=== PATIENT | female | born 1955 | race Asian ===

== ENCOUNTER 2016-12-27 21:53 | Observation (INO) | payer OTHER ==
[~2016-12-27] VITALS: Ht 162.6 cm; Wt 52.5 kg
[~2016-12-27 21:53] MED LIST: ASPI-664 PO; ATOR40TA68 PO; CLOP75TA28 PO; DOCU100C PO; FER325 PO; LISI-313 PO; LORA0.5T PO; METO25TA7 PO; PANT40TA3 PO; RANO500T2 PO
[2016-12-27 21:57] VITALS: Ht 162.6 cm; Wt 52.5 kg
[2016-12-27] MEDS ORDERED: ONDANSETRON 4 MG INJ IV STA (22:32)
[2016-12-27] MEDS ORDERED: morphine 4 MG/ML VIAL IV STA (22:32)
[2016-12-27] MEDS ORDERED: ATOR80TA75 PO (22:47)
[2016-12-27 22:52] LABS: ADD SCAN DIFF NO
[2016-12-27 22:53] LABS: BASOPHIL # 0.1 10^3/ul (0.0-0.1); BASOPHILS % 0.7 % (0.0-2.0); EOSINOPHILS # 0.2 10^3/ul (0.0-0.5); EOSINOPHILS % 2.9 % (0.0-7.0); HEMOGLOBIN 12.7 g/dl (12.0-16.0); LYMPHOCYTES # 2.4 10^3/ul (0.8-2.9); LYMPHOCYTES % 32.6 % (15.0-51.0); MEAN CORPUSCULAR HEMOGLOBIN 30.1 pg (29.0-33.0); MEAN CORPUSCULAR HGB CONC 32.6 g/dl (32.0-37.0); MEAN CORPUSCULAR VOLUME 92.4 fl (82.0-101.0); MEAN PLATELET VOLUME 10.2 fl (7.4-10.4); MONOCYTE # 0.4 10^3/ul (0.3-0.9); MONOCYTES % 5.6 % (0.0-11.0); NEUTROPHIL # 4.3 10^3/ul (1.6-7.5); NEUTROPHILS % 57.9 % (39.0-77.0); PLATELET COUNT 198 10^3/UL (140-415); RED BLOOD COUNT 4.22 10^6/ul (4.20-5.40); RED CELL DISTRIBUTION WIDTH 12.5 % (11.5-14.5); WHITE BLOOD COUNT 7.3 10^3/ul (4.8-10.8)
[2016-12-27] MEDS ORDERED: ENALAPRILAT 1.25 MG INJ IV ONE (23:00)
[2016-12-27] MEDS ORDERED: ASPIRIN 81 MG TAB PO ONE (23:00)
[2016-12-27] MEDS ORDERED: NITROGLYCERIN (SL) 0.4 MG TAB SL ONE (23:00)
[2016-12-27 23:26] LABS: ADD UMIC YES; URINE BILIRUBIN (Dip) NEGATIVE (NEGATIVE); URINE BLOOD (Dip) TRACE (NEGATIVE); URINE COLOR LT. YELLOW (YELLOW); URINE GLUCOSE (Dip) NEGATIVE (NEGATIVE); URINE KETONES (Dip) NEGATIVE (NEGATIVE); URINE LEUKOCYTE ESTERASE (Dip) 1+ (NEGATIVE); URINE NITRITE (Dip) NEGATIVE (NEGATIVE); URINE TOTAL PROTEIN (Dip) NEGATIVE (NEGATIVE); URINE UROBILINOGEN (Dip) 0.2 E.U./dL (0.1-1.0)
--- NOTE | 2016-12-27 23:28 | ERA ---
ER Documentation Chief Complaint Date/Time DATE: 12/27/16 TIME: 23:26 Chief Complaint hypertension, sp CaBG x 3 vessels 7 months ago HPI 61-year-old woman presents with pressure-like substernal chest pain 1 day, nonexertional nonradiating but associated with intermittent shortness of breath. She does have a history of coronary artery disease status post coronary bypass graft 7 months ago. She states she has been using her medications as prescribed, including aspirin. She later stated she has had increased urinary frequency 2-3 days. She denies back pain, no cough, no fevers or chills, no vomiting or diarrhea, no headache or blurry vision. ROS All systems reviewed and are negative except as per history of present illness. Medications Home Meds Active Scripts Metoprolol Succinate* (Toprol XL*) 25 Mg Tab.sr.24h, 25 MG PO DAILY for 30 Days , 3 Refills Prov:AMINATA ANDERSON 08/11/16 Lisinopril* (Lisinopril*) 5 Mg Tablet, 5 MG PO DAILY for 30 Days, TAB 3 Refills Prov:AMINATA ANDERSON 07/25/16 Pantoprazole* (Protonix*) 40 Mg Tablet., 40 MG PO QHS, #30 TAB 3 Refills Prov:AMINATA ANDERSON 07/25/16 Aspirin* (Aspirin* EC) 81 Mg Tablet.dr, 81 MG PO DAILY for 30 Days, 3 Refills Prov:AMINATA ANDERSON 07/25/16 Clopidogrel Bisulfate (Clopidogrel) 75 Mg Tablet, 75 MG PO DAILY for 30 Days, TAB 3 Refills Prov:TOMASZ VILLAR MD 06/17/16 Reported Medications Atorvastatin* (Atorvastatin*) 80 Mg Tablet, 80 MG PO QHS, #30 TAB 12/27/16 Ranolazine* (Ranexa*) 500 Mg Tab.sr.12h, 500 MG PO BID, TAB 07/23/16 Ferrous Sulfate* (Ferrous Sulfate*) 325 Mg Tabec, 325 MG PO BID, TAB 05/22/16 Docusate Sodium* (Stool Softener*) 100 Mg Capsule, 100 MG PO BID, CAP 05/22/16 Discontinued Reported Medications Lorazepam* (Lorazepam*) 0.5 Mg Tablet, 0.5 MG PO HS Y for ANXIETY, TAB 07/23/16 Discontinued Scripts Atorvastatin* (Atorvastatin*) 40 Mg Tablet, 40 MG PO HS for 30 Days, TAB 3 Refills Prov:AMINATA ANDERSON 08/11/16 Allergies Allergies: Coded Allergies: Penicillins (Verified Allergy, Unknown, 08/10/16) metronidazole (Verified Allergy, Unknown, RASH, 08/10/16) PMhx/Soc Hypercholesterolemia, coronary artery disease status post coronary artery bypass graft about 7 months ago, hypertension History of Surgery: Yes (CABG triple bypass 05/08/2016, STENT PLACEMENT 2015) Anesthesia Reaction: No Hx Neurological Disorder: No Hx Respiratory Disorders: Yes (ASTHMA, SOB only when there is pain on the post surgery site) Hx Cardiac Disorders: Yes (chest, HTN, HEART ATTACK) Hx Psychiatric Problems: No Hx Miscellaneous Medical Probl: No Hx Alcohol Use: No Hx Substance Use: No Hx Tobacco Use: No Smoking Status: Never smoker FmHx Family History: diabetes Physical Exam Vitals Vital Signs Date Time Temp Pulse Resp B/P Pulse Ox O2 Delivery O2 Flow Rate FiO2 12/28/16 00:20 97.7 55 15 155/80 100 Room Air 12/27/16 22:43 Nasal Cannula 12/27/16 21:57 98.8 81 20 223/110 98 Physical Exam GENERAL: Well-developed, well-nourished, well-hydrated, in no apparent distress , looks nontoxic in appearance HEENT: Moist mucous membranes, pink conjunctiva, no cervical spine tenderness or step-off deformities, no goiter, no jaundice or icterus, extraocular movements intact without pain. No submandibular induration, and no pharyngeal erythema NEURO: Alert and oriented 3, cranial nerves II through XII intact bilaterally, pupils equal round reactive to light, no focal deficits or facial asymmetry, sensation intact distally Strength 5/5 in upper and lower extremities bilaterally CARDIAC: Regular rate and rhythm, no murmurs rubs or gallops LUNGS: Clear bilaterally no wheezing crackles or stridor ABDOMEN: Soft nontender, no guarding, no rigidity, no rebound, no psoas sign no obturator sign. Normoactive bowel sounds SKIN: Warm and dry to touch, no abrasions, contusions, or hematomas, no lacerations, no ecchymosis, no target lesions, and without ulcers EXTREMITIES: No clubbing cyanosis or edema, calves are bilaterally symmetrical, no Homans sign, no popliteal cord sign. Distal pulses equal and bilateral PSYCH: Normal affect without agitation or irritability Result Diagram: 12/27/16223912/27/162239 Results 24 hrs Laboratory Tests Test 12/27/16 22:40 White Blood Count 7.310^3/ul Red Blood Count 4.2210^6/ul Hemoglobin 12.7g/dl Hematocrit 39.0% Mean Corpuscular Volume 92.4fl Mean Corpuscular Hemoglobin 30.1pg Mean Corpuscular Hemoglobin Concent 32.6g/dl Red Cell Distribution Width 12.5% Platelet Count 71454^3/UL Mean Platelet Volume 10.2fl Neutrophils % 57.9% Lymphocytes % 32.6% Monocytes % 5.6% Eosinophils % 2.9% Basophils % 0.7% Nucleated Red Blood Cells % 0.0/100WBC Neutrophils # 4.310^3/ul Lymphocytes # 2.410^3/ul Monocytes # 0.410^3/ul Eosinophils # 0.210^3/ul Basophils # 0.110^3/ul Nucleated Red Blood Cells # 0.010^3/ul Urine Color LT. YELLOW Urine Clarity CLEAR Urine pH 6.0 Urine Specific Angelica <=1.005 Urine Ketones NEGATIVE Urine Nitrite NEGATIVE Urine Bilirubin NEGATIVE Urine Urobilinogen 0.2 E.U./dL Urine Leukocyte Esterase 1+ Urine Microscopic RBC 2-5/HPF Urine WBC Clumps FEW Urine Microscopic WBC 5-10/HPF Urine Hemoglobin TRACE Urine Glucose NEGATIVE% Urine Total Protein NEGATIVE Sodium Level 139mmol/L Potassium Level 4.2mmol/L Chloride Level 106mmol/L Carbon Dioxide Level 24mmol/L Anion Gap 13 Blood Urea Nitrogen 18mg/dl Creatinine 0.89mg/dl Glucose Level 109mg/dl Calcium Level 10.0mg/dl Total Bilirubin 0.3mg/dl Direct Bilirubin 0.00mg/dl Indirect Bilirubin 0.3mg/dl Aspartate Amino Transf (AST/SGOT) 24IU/L Alanine Aminotransferase (ALT/SGPT) 30IU/L Alkaline Phosphatase 71IU/L Troponin I 0.023ng/ml Total Protein 8.6g/dl Albumin 4.5g/dl Globulin 4.10g/dl Albumin/Globulin Ratio 1.09 Lipase 89U/L Current Medications Medications (Trade) Dose Ordered Sig/Rosario Route PRN Reason Start Time Stop Time Status Last Admin Dose Admin Morphine Sulfate (morphine) 4 mg ONCE STAT IV 12/27/16 22:32 12/27/16 22:33 DC 12/27/16 22:48 Ondansetron HCl (Zofran Inj) 4 mg ONCE STAT IV 12/27/16 22:32 12/27/16 22:33 DC 12/27/16 22:48 Aspirin (Aspirin) 162 mg ONCE ONCE PO 12/27/16 23:00 12/27/16 23:01 DC 12/27/16 22:47 Nitroglycerin (Nitroglycerin (Sl Tab) 0.4 Mg) 1 tab ONCE ONCE SL 12/27/16 23:00 12/27/16 23:01 DC 12/27/16 22:47 Enalaprilat (Vasotec Iv) 1.25 mg ONCE ONCE IV 12/27/16 23:00 12/27/16 23:01 DC 12/27/16 22:47 Cephalexin (Keflex) 500 mg ONCE ONCE PO 12/28/16 00:00 12/28/16 00:01 DC 12/28/16 00:50 Ondansetron HCl 4 mg 4 mg ONCE ONCE IV 12/28/16 00:23 12/28/16 00:24 DC 12/28/16 00:24 Sodium Chloride (NS) 1,000 ml @ 80 mls/hr [id number] IV 12/28/16 00:31 12/28/16 13:00 Ondansetron HCl (Zofran Inj) 4 mg ER BRIDGE PRN IV NAUSEA AND/OR VOMITING 12/28/16 01:00 12/29/16 00:59 Acetaminophen (Tylenol Tab) 650 mg ER BRIDGE PRN PO MILD PAIN/FEVER 12/28/16 01:00 12/29/16 00:59 Procedures/MDM IV line was established patient was placed on ekg monitor rhythm strip revealed a sinus rhythm at about 70 bpm with upright P and T waves. Patient was afebrile. EKG performed, read by me: 70 bpm, normal sinus rhythm, normal axis, no acute ST segment changes, narrow QRS complex, with good R-wave progression in precordial leads. Patient was severely hypertensive with an initial diastolic blood pressure of over 110 mmHg and a systolic of over 220 mmHg, I treated her here with nitroglycerin 0.4 mg sublingual, and enalapril 1.25 mg IV 1. Patient also received aspirin 162 mg p.o. for cardioprotective measures, morphine 4 mg IV, and Zofran 4 mg IV. CBC and electrolytes were unremarkable, liver function tests are normal, troponin was negative. Urine analysis was positive for infection I treated her here with cephalexin 500 mg p.o. 1. One view chest x-ray performed, read by me revealed cardiomegaly and sternotomy wires, no acute infiltrates, no pneumothorax. Patient's blood pressure improved although given her symptoms and past medical history she will be admitted to telemetry setting for continued medical management cardiology consultation. Critical Care: Time: 32 minutes, this was time separate from other procedures. Treatments/Evaluations: Close monitoring and treatment of unstable vital signs, cardiorespiratory, and neurologic status, while maintaining tight balance of fluid, respiratory, and cardiac interventions. Departure Diagnosis: Primary Impression: Hypertensive emergency Additional Impressions: Chest pain Qualified Code: R07.9 - Chest pain, unspecified type UTI (urinary tract infection) Qualified Code: N30.00 - Acute cystitis without hematuria Condition: DODIE Flores MD December 27, 2016 23:28
[2016-12-28] VITALS (12 sets, daily range): BP systolic 114–164; BP diastolic 55–79; PULSE 44–56; RESP 17–20; TEMP 97.7
[2016-12-28] MEDS ORDERED: CEPHALEXIN 500 MG CAP PO ONE
[2016-12-28 00:07] LABS: ALBUMIN 4.5 g/dl (3.3-4.9); ALBUMIN/GLOBULIN RATIO 1.09; BILIRUBIN,INDIRECT 0.3 mg/dl (0-1.1); BILIRUBIN,TOTAL 0.3 mg/dl (0.2-1.3); CREATININE 0.89 mg/dl (0.44-1.00); POTASSIUM 4.2 mmol/L (3.5-5.1); TOTAL PROTEIN 8.6 g/dl (6.1-8.1)
--- NOTE | 2016-12-28 00:13 | RADRPT ---
PROCEDURE: Portable chest x-ray. CLINICAL INDICATION: Abdominal pain. TECHNIQUE: Portable AP view of the chest. COMPARISON: 08/10/2016. FINDINGS: No pulmonary edema or conolidation is identified. The patient is status post median sternotomy and C ABG. The cardiac silhouette is magnified. No pleural effusion is seen. There is no pneumothorax. There is no pneumoperitoneum. IMPRESSION: 1. No evidence of acute cardiopulmonary disease. 2. Status post CABG. 3. No pneumoperitoneum. RPTAT: HTAR .Hermann Torres MD, MD Date Time Electronically viewed and signed by .Hermann Torres MD, MD on 12/28/2016 00:13 .R/
[2016-12-28 00:18] LABS: TROPONIN-I 0.023 ng/ml (0.00-0.12)
[2016-12-28] MEDS ORDERED: ONDANSETRON 4 MG INJ IV ONE (00:23)
[2016-12-28] MEDS ORDERED: SOD CHLORIDE 0.9% 1,000 ML IV SCH (00:31)
[2016-12-28] MEDS ORDERED: ONDANSETRON 4 MG INJ IV PRN (01:00)
[2016-12-28] MEDS ORDERED: ACETAMINOPHEN 325 MG TAB PO PRN (01:00)
[2016-12-28] MEDS ORDERED: METOCLOPRAMIDE 10 MG INJ IV PRN (08:00)
[2016-12-28 08:18] LABS: ADD SCAN DIFF NO
[2016-12-28 08:36] LABS: BASOPHILS % 0.7 % (0.0-2.0); EOSINOPHILS # 0.1 10^3/ul (0.0-0.5); EOSINOPHILS % 1.8 % (0.0-7.0); HEMATOCRIT 36.7 % (37.0-47.0); HEMOGLOBIN 11.7 g/dl (12.0-16.0); LYMPHOCYTES # 1.7 10^3/ul (0.8-2.9); LYMPHOCYTES % 31.4 % (15.0-51.0); MEAN CORPUSCULAR HEMOGLOBIN 29.7 pg (29.0-33.0); MEAN CORPUSCULAR HGB CONC 31.9 g/dl (32.0-37.0); MEAN CORPUSCULAR VOLUME 93.1 fl (82.0-101.0); MEAN PLATELET VOLUME 10.3 fl (7.4-10.4); MONOCYTE # 0.3 10^3/ul (0.3-0.9); MONOCYTES % 5.6 % (0.0-11.0); NEUTROPHIL # 3.3 10^3/ul (1.6-7.5); NEUTROPHILS % 60.1 % (39.0-77.0); PLATELET COUNT 174 10^3/UL (140-415); RED BLOOD COUNT 3.94 10^6/ul (4.20-5.40); RED CELL DISTRIBUTION WIDTH 12.5 % (11.5-14.5); WHITE BLOOD COUNT 5.5 10^3/ul (4.8-10.8)
[2016-12-28 08:44] LABS: ALBUMIN 3.7 g/dl (3.3-4.9); ALBUMIN/GLOBULIN RATIO 1.05; BILIRUBIN,INDIRECT 0.6 mg/dl (0-1.1); BILIRUBIN,TOTAL 0.6 mg/dl (0.2-1.3); CALCIUM 9.2 mg/dl (8.4-10.2); CREATININE 0.84 mg/dl (0.44-1.00); POTASSIUM 4.7 mmol/L (3.5-5.1); TOTAL PROTEIN 7.2 g/dl (6.1-8.1)
[2016-12-28] MEDS ORDERED: LISINOPRIL 5 MG TAB PO SCH (09:00)
[2016-12-28] MEDS: FOLIC ACID 1 MG TAB PO SCH (09:25)
[2016-12-28] MEDS: CLOPIDOGREL 75 MG TAB PO SCH (09:26)
[2016-12-28] MEDS: ASPIRIN (EC) 81 MG TAB PO SCH (09:26)
[2016-12-28] MEDS: RANOLAZINE (SR) 500 MG TAB PO SCH ×2 (09:51→21:36)
[2016-12-28] MEDS: LEVOFLOXACIN 250MG/D5W (PMX) 50 ML IVPB SCH (09:51)
[2016-12-28 09:55] LABS: CK-MB 0.64 ng/ml (0.0-2.4)
[2016-12-28 09:58] LABS: TROPONIN-I 0.032 ng/ml (0.00-0.12)
--- NOTE | 2016-12-28 13:24 | HP ---
DATE OF ADMISSION: 12/28/2016 CHIEF COMPLAINT: Shortness of breath. REASON FOR ADMISSION: Atypical chest pain, status post recent coronary artery bypass graft. HISTORY OF PRESENT ILLNESS: This is a 61-year-old female who has a past medical history of coronary artery disease, status post CABG x3 vessel approximately 7 months before, hypertension, hyperlipidemia, history of constipation who presented with chest pain, substernal, started for 1 day, nonexertional, nonradiating, associated with intermittent shortness of breath. She does have a history of coronary artery disease and had a coronary artery bypass graft 3 vessels approximately 7 months before. She has been following with distribution engineer, Dr. Nguyen. She also has increased urinary frequency for the last 2 to 3 days. She denies any back pain, no fever, chills, headache, dizziness, blurry vision, constipation, diarrhea, dysuria, increased urinary frequency. The patient had a workup done in the emergency room including her chest x-ray which shows no acute finding, status post coronary artery bypass graft. The patient's labs revealed mild anemia. Along with that. she had troponin x2 negative. The patient had a urinalysis done in the emergency room that shows 1+ leukocyte esterase, otherwise negative. At the time of my evaluation, she was chest pain free, denies any headache, dizziness, blurry vision, constipation, diarrhea, dysuria, increased urinary frequency, lower extremity swelling. REVIEW OF SYSTEMS: Positive for chest pain associated with shortness of breath. Other review of systems has been obtained and is negative except what is mentioned in the history of present illness. PAST MEDICAL HISTORY: Notable for hypertension, hyperlipidemia, history of coronary artery disease, history of asthma, history of eczema. PAST SURGICAL HISTORY: 1. History of previous cardiac catheterization and stent placement in June 2016. 2. History of coronary artery bypass graft in April 2016. SOCIAL HISTORY: No smoking, alcohol or recreational drug use at this time. FAMILY HISTORY: The patient denies any significant family history of coronary artery disease. She denies a history of stroke or chronic kidney disease in the family. PHYSICAL EXAMINATION: VITAL SIGNS: Temperature 97.8, heart rate is 49 dropped down to 36, respiration 19, blood pressure 129/62, saturation is 99% on room air. GENERAL: Awake, alert, in moderate distress due to the bradycardia and chest pain. HEENT: Pupils equal, round, reactive to light and accommodation. Extraocular muscles are intact. NECK: Supple, no lymphadenopathy, no jugular venous distention. HEART: S1, S2, bradycardia. No murmur. LUNGS: Decreased breath sounds at both lung bases. No crackles. No wheezes. ABDOMEN: Soft, nontender, nondistended. Bowel sounds are present. EXTREMITIES: No clubbing, cyanosis, edema. NEUROLOGICAL: Alert, awake x3. The patient oriented to place, person and time. Cranial nerves II through XII are intact. Gross motor strength 5/5 in all extremities. Reflexes are normal. Sensations are intact. SKIN: No rash. PSYCHIATRIC: Appropriate affect and mood. LABORATORY DATA AND DIAGNOSTIC IMAGING: Urinalysis shows 1+ leukocyte esterase. Sodium 139, potassium 4.7, chloride 108, bicarbonate 27, BUN 20, creatinine 0.8, glucose 99, calcium 9.2. LFTs are normal. Albumin 3.7. Troponin x2 is negative. Lipase 89. WBC 5.5, hemoglobin 11.7, platelet count is 174. Chest x-ray shows status post coronary artery bypass graft. No acute findings EKG done in the emergency room shows a sinus bradycardia, no ST-T wave changes suggestive of ischemia. IMPRESSION: This is a 61-year-old female with: 1. Atypical chest pain associated with severe significant sinus bradycardia. 2. Sinus bradycardia with heart rate down to 36. Symptomatic bradycardia 3. History of coronary artery disease, status post coronary artery bypass graft x3 vessels in April 2016. 4. History of cardiac catheterization with a stent placement in June 2016. 5. History of hypertension. 6. History of hyperlipidemia. 7. History of asthma. 8. History of eczema. 9. Urinary tract infection. PLAN: The patient was seen in the telemetry floor. Currently, she is chest pain free but she is ordered to have a serial troponins and echocardiogram has been ordered by Dr. Nguyen, Cardiology consult, Dr. Nguyen, to see patient. 1. I will continue the patient on IV antibiotics, Levaquin for urinary tract infection. 2. Pain control with Tylenol, [place], morphine. 3. Continue the other home medications. No beta blockers including Coreg/ metoprolol at this time due to the severe sinus bradycardia with heart rate down to 36. 4. Protonix for GI prophylaxis and SCDs for DVT prophylaxis. 5. PT evaluation and treatment. 6. The patient currently seen in the telemetry floor and she will be followed up along with distribution engineer, Dr. Nguyen for further plan. Echocardiogram has been ordered and serial troponins have been ordered. Total Time spent in patient evaluation, physical exam, making assessment and plan, Communicating with cardiology and Nursing staff took more than 90 minutes. Dictated By: TOBIAS MCMAHON MD, KP/MENDEL Conf#: [id number] DID#: [id number] MTDJose
[2016-12-28] MEDS: METOPROLOL (XL) 25 MG TAB PO SCH ×2 (21:00→21:37)
[2016-12-28] MEDS: ATORVASTATIN 80 MG TAB PO SCH (21:35)
[2016-12-28] MEDS: PANTOPRAZOLE (EC) 40 MG TAB PO SCH (21:36)
[2016-12-29] VITALS (11 sets, daily range): BP systolic 132–170; BP diastolic 59–79; PULSE 42–57; RESP 17–20
--- NOTE | 2016-12-29 06:50 | CONS ---
DATE OF ADMISSION: 12/28/2016 DATE OF CONSULTATION: 12/28/2016 TYPE OF CONSULTATION: Cardiology. REASON FOR CONSULTATION: Hypertension, chest pain. CHIEF COMPLAINT: High blood pressure. HISTORY OF PRESENT ILLNESS: Thank you for this referral. History obtained from the patient, was pe rsonally reviewed of the old chart. This is a very pleasant 61-year-old female known to me from pre vious admissions to the hospital and outpatient workup with history of coronary artery disease, stat us post CT, status post bypass surgery, status post PCI of the graft, who presented . She is f eeling fine, she was talking to her son and maybe it was a little bit stressful. She has had severe hypertension over 210. Last night it did not go down, she came to emergency room. Currently, her blood pressure overnight has been stabilized to 120s. She has some mild chest discomfort which has been sharp and gone away now. She was feeling dizzy , currently is feeling better. PAST MEDICAL HISTORY: History of coronary artery disease, status post CT, status post coronary bypa ss graft, history of PCI of the saphenous vein graft on 06/08/2016 with and drug-eluting stent , history of hypertension, congestive heart failure, dyslipidemia. SOCIAL HISTORY: Does not smoke or drink. FAMILY HISTORY: No reported early coronary artery disease. PAST SURGICAL HISTORY: Had 3-vessel bypass surgery in 03/2017 and in 05/[address] an CT. coronary angiography by myself. Underwent PCI of her saphenous vein graft with a PDA. The ve in had 60% distal stenosis. LAD 90%. BROCK to LAD was patent. Ramus at 75%. Left circumflex arter y was normal, RCA was 100% occluded and probably appeared to possibly vessel. Saphenous vein has remained patent. Saphenous vein into RCA had distal 80% stenosis which was successfully s tented. MEDICATIONS: As per medication reconciliation, personally reviewed, which includes at home she take s: 1. Aspirin. 2. Plavix. 3. Protonix. 4. Lipitor 80 mg. 5. Lisinopril 20. 6. Ranexa. 7. Vitamins. 8. Folic acid. REVIEW OF SYSTEMS: As above mentioned. PHYSICAL EXAMINATION: VITAL SIGNS: Most recent one showed temperature 97.9, heart rate of 53, blood pressure 123/63, resp iration 19. HEENT: Normocephalic, atraumatic. No acute distress. Pupils are equal. CARDIOVASCULAR: Regular rate and rhythm, systolic murmur. PULMONARY: With no wheezes. GASTROINTESTINAL: Soft, nontender. EXTREMITIES: No significant lower extremity edema. NEUROLOGIC: Awake and alert. PSYCHIATRIC: Appears to be calm and pleasant. DIAGNOSTIC DATA: The old chart showed the patient had a stress echocardiogram done on 11/02/2016 wh ich showed submaximal, but no ischemia was seen at about 10 mets. ASSESSMENT AND PLAN: 1. Hypertensive urgency, currently has resolved. 2. Coronary artery disease, history of atypical chest pain has resolved now. 3. Hypertension. 4. History of coronary artery disease and coronary bypass graft. RECOMMENDATIONS: 1. We will continue with home medication including Lipitor, aspirin, Plavix and lisinopril. Toprol will be continued. 2. We will repeat the cardiac enzymes and echocardiogram. 3. Rule out myocardial infarction. Dictated By: JOSE LOMAS MD AV/NTS Conf#: [id number] DID#: [id number] CC: MADIE STALLINGS MD;*EndCC*
[2016-12-29 07:18] LABS: ADD SCAN DIFF NO
[2016-12-29 07:28] LABS: BASOPHILS % 0.8 % (0.0-2.0); EOSINOPHILS # 0.2 10^3/ul (0.0-0.5); EOSINOPHILS % 4.8 % (0.0-7.0); HEMATOCRIT 36.2 % (37.0-47.0); HEMOGLOBIN 11.7 g/dl (12.0-16.0); LYMPHOCYTES # 1.8 10^3/ul (0.8-2.9); LYMPHOCYTES % 36.6 % (15.0-51.0); MEAN CORPUSCULAR HEMOGLOBIN 30.2 pg (29.0-33.0); MEAN CORPUSCULAR HGB CONC 32.3 g/dl (32.0-37.0); MEAN CORPUSCULAR VOLUME 93.5 fl (82.0-101.0); MEAN PLATELET VOLUME 10.5 fl (7.4-10.4); MONOCYTE # 0.4 10^3/ul (0.3-0.9); MONOCYTES % 8.3 % (0.0-11.0); NEUTROPHIL # 2.5 10^3/ul (1.6-7.5); NEUTROPHILS % 49.3 % (39.0-77.0); PLATELET COUNT 165 10^3/UL (140-415); RED BLOOD COUNT 3.87 10^6/ul (4.20-5.40); RED CELL DISTRIBUTION WIDTH 12.5 % (11.5-14.5)
[2016-12-29 07:49] LABS: INR 0.96; PROTIME 12.8 Sec (12.2-14.2)
[2016-12-29 07:50] LABS: PARTIAL THROMBOPLASTIN TIME 26.7 Sec (25.0-35.0)
[2016-12-29 08:09] LABS: CALCIUM 9.3 mg/dl (8.4-10.2); CREATININE 0.95 mg/dl (0.44-1.00); POTASSIUM 4.2 mmol/L (3.5-5.1)
[2016-12-29] MEDS: CLOPIDOGREL 75 MG TAB PO SCH (08:44)
[2016-12-29] MEDS: ASPIRIN (EC) 81 MG TAB PO SCH (08:44)
[2016-12-29] MEDS: RANOLAZINE (SR) 500 MG TAB PO SCH ×2 (08:44→21:37)
[2016-12-29] MEDS: FOLIC ACID 1 MG TAB PO SCH (08:44)
[2016-12-29] MEDS ORDERED: METOPROLOL (XL) 25 MG TAB PO SCH (09:00)
[2016-12-29] MEDS ORDERED: LISINOPRIL 20 MG TAB PO SCH (09:00)
[2016-12-29] MEDS: LEVOFLOXACIN 250MG/D5W (PMX) 50 ML IVPB SCH (11:19)
--- NOTE | 2016-12-29 16:39 | RADRPT ---
Vent Rate: 43 bpm RR Interval: 0 msec ME Interval: 158 msec QRS Duration: 86 msec QT Interval: 536 msec QTC Interval: 452 msec P-R-T [place]: 50 - 20 - 166 degrees Marked sinus bradycardia T wave abnormality, consider inferolateral ischemia Abnormal ECG Electronically Signed By: Masood Thompson [id number]
--- NOTE | 2016-12-29 16:41 | PN ---
Date/Time of Note Date/Time of Note DATE: 12/29/16 TIME: 16:38 Assessment/Plan VTE Prophylaxis VTE Prophylaxis Intervention: SCD's Lines/Catheters IV Catheter Type (from Nrsg): Saline Lock Assessment/Plan Assessment/Plan 1. Atypical chest pain associated with severe significant sinus bradycardia. 2. Sinus bradycardia with heart rate down to 36. Symptomatic bradycardia 3. History of coronary artery disease, status post coronary artery bypass graft x3 vessels in April 2016. 4. History of cardiac catheterization with a stent placement in June 2016. 5. History of hypertension. 6. History of hyperlipidemia. 7. History of asthma. 8. History of eczema. 9. Urinary tract infection. PLAN: IV levaquin for UTI, urine cx no growth to date Bp stable Toprol Xl started today AM, HR still drops down to 35-40 Cardiology has been following, ECHO done, not read yet SCD for DVT prophylaxis Protonix for GI prophylaxis Subjective 24 Hr Interval Summary Free Text/Dictation doing ok, BP stable but HR still low to 30s, Toprol XL started today AM Exam/Review of Systems Vital Signs Vitals Vital Signs Date Time Temp Pulse Resp B/P Pulse Ox O2 Delivery O2 Flow Rate FiO2 12/29/16 12:45 51 12/29/16 07:36 98.1 17 143/68 98 12/28/16 02:00 Room Air Intake and Output 12/28/16 12/28/16 12/29/16 15:00 23:00 07:00 Intake Total 50 ml 960 ml 150 ml Balance 50 ml 960 ml 150 ml Exam GENERAL: Awake, alert, in moderate distress due to the bradycardia and chest pain. HEENT: Pupils equal, round, reactive to light and accommodation. Extraocular muscles are intact. NECK: Supple, no lymphadenopathy, no jugular venous distention. HEART: S1, S2, bradycardia. No murmur. LUNGS: Decreased breath sounds at both lung bases. No crackles. No wheezes. ABDOMEN: Soft, nontender, nondistended. Bowel sounds are present. EXTREMITIES: No clubbing, cyanosis, edema. NEUROLOGICAL: Alert, awake x3. The patient oriented to place, person and time. Cranial nerves II through XII are intact. Gross motor strength 5/5 in all extremities. Reflexes are normal. Sensations are intact. SKIN: No rash. PSYCHIATRIC: Appropriate affect and mood. Results Result Diagram: 12/29/1660412/29/16 06 Results 24 hrs Laboratory Tests Test 12/28/16 18:12 12/29/16 06:05 Troponin I 0.014 White Blood Count 5.0 Red Blood Count 3.87 L Hemoglobin 11.7 L Hematocrit 36.2 L Mean Corpuscular Volume 93.5 Mean Corpuscular Hemoglobin 30.2 Mean Corpuscular Hemoglobin Concent 32.3 Red Cell Distribution Width 12.5 Platelet Count 165 Mean Platelet Volume 10.5 H Neutrophils % 49.3 Lymphocytes % 36.6 Monocytes % 8.3 Eosinophils % 4.8 Basophils % 0.8 Nucleated Red Blood Cells % 0.0 Neutrophils # 2.5 Lymphocytes # 1.8 Monocytes # 0.4 Eosinophils # 0.2 Basophils # 0.0 Nucleated Red Blood Cells # 0.0 Prothrombin Time 12.8 Prothrombin Time Ratio 1.0 INR International Normalized Ratio 0.96 Activated Partial Thromboplast Time 26.7 Sodium Level 139 Potassium Level 4.2 Chloride Level 108 Carbon Dioxide Level 26 Anion Gap 9 Blood Urea Nitrogen 20 Creatinine 0.95 Glucose Level 86 Calcium Level 9.3 Medications Medications Current Medications Levofloxacin/ Dextrose (Levaquin 250 Mg/ D5W 50 ml (Pmx)) 50 ml @ 50 mls/hr Q24H IVPB Last administered on 12/29/16 11:19; Admin Dose 50 MLS/HR; Start 12/28 at 09:30 Metoclopramide HCl (Reglan) 10 mg Q6H PRN IV NAUSEA; Start 12/28/16 at 08:00 Aspirin (Halfprin) 81 mg DAILY PO Last administered on 12/29/16 08:44; Admin Dose 81 MG; Start 12/28/16 at 09:00 Atorvastatin Calcium (Lipitor) 80 mg QHS PO Last administered on 12/28/16 21:35 ; Admin Dose 80 MG; Start 12/28/16 at 21:00 Clopidogrel Bisulfate (plaVIX) 75 mg DAILY PO Last administered on 12/29/16 08: 44; Admin Dose 75 MG; Start 12/28/16 at 09:00 Pantoprazole (Protonix Tab) 40 mg QHS PO Last administered on 12/28/16 21:36; Admin Dose 40 MG; Start 12/28/16 at 21:00 Ranolazine (Ranexa) 500 mg BID PO Last administered on 12/29/16 08:44; Admin Dose 500 MG; Start 12/28/16 at 09:00 Folic Acid (Folic Acid) 1 mg DAILY PO Last administered on 12/29/16 08:44; Admin Dose 1 MG; Start 12/28/16 at 09:00 Lisinopril (Zestril) 20 mg DAILY PO Last administered on 12/29/16 08:44; Admin Dose 20 MG; Start 12/29/16 at 09:00 Metoprolol Succinate (Toprol Xl) 25 mg QAM PO ; Start 12/29/16 at 09:00 TOBIAS MCMAHON MD December 29, 2016 16:41
--- NOTE | 2016-12-29 17:49 | RADRPT ---
Echocardiogram Report Patient Name: BREANNA POZO Gender: Female Date: 1955 Study Date: 28-Dec-2016 Acid Loader: Arcelia Macias [facility] Location: [id number] Ref. Physician: JOSE NGUYEN Quality: Adequate Procedures: Transthoracic echocardiogram with complete 2D, M-Mode, and doppler examination. Indications: Chest Pain. 2D/M Mode Doppler Measurement Value Normal Ranges Measurement Value Normal Ranges LVIDd 2D 5.5 3.5 - 5.6 cm AV Mean James 1.3 m/sec LVIDs 2D 3.7 2.1 - 4.1 cm AV Mean PG 7.9 mmHg LVPWd 2D 0.8 0.6 - 1.1 cm AV Peak James 2.0 m/sec IVSd 2D 0.9 0.6 - 1.1 cm AV Peak PG 16.6 mmHg AoR Diam 2D 2.6 2.0 - 3.7 cm AV VTI 45.7 cm EDV 2D 149.8 cm3 AI Peak PG 110.1 mmHg ESV 2D 49.9 cm3 AI Peak James 5.2 m/sec LA Dimen 2D 4.0 2.3 - 4.0 cm AI PHT 708.2 msec TR Peak James 2.8 m/sec TR Peak PG 31.7 mmHg RVSP 34.0 mmHg Findings Left Ventricle: Lower limits of normal systolic function. Normal left ventricular cavity size. Normal left ventricular wall thickness. Ejection fraction is visually estimated at 50 - 55 %. Right Ventricle: Normal right ventricular size. Normal right ventricular systolic function. Left Atrium: Upper limit of normal left atrial size. LA Dimension0.00 cm. Right Atrium: The right atrium is normal in size. Mitral Valve: Mitral valve leaflets appear mildly thickened. Mild mitral annular calcification. Mild mitral valve regurgitation. Aortic Valve: Aortic cusps appear mildly calcified. Mild aortic valve regurgitation. Tricuspid Valve: Normal appearance of the tricuspid valve. There is mild tricuspid regurgitation. Pulmonic Valve: Pulmonic valve not well visualized. There is mild pulmonic regurgitation. Pericardium: Normal pericardium with no significant pericardial effusion. Aorta: Normal aortic root. IVC: Normal size and normal respiratory collapse consistent with normal right atrial pressure. Conclusions 1.Lower limits of normal systolic function. Normal left ventricular cavity size. Normal left ventricular wall thickness. Ejection fraction is visually estimated at 50 - 55 %. 2.Mitral valve leaflets appear mildly thickened. Mild mitral annular calcification. Mild mitral valve regurgitation. 3.Aortic cusps appear mildly calcified. Mild aortic valve regurgitation. 4.Normal appearance of the tricuspid valve. There is mild tricuspid regurgitation. Electronically Signed By: Jose Nguyen 29-Dec-2016 17:48:37 -0700 Patient Name: BREANNA POZO Study Date: 28-Dec-2016 [id number]
--- NOTE | 2016-12-29 20:34 | PN ---
DATE: 12/29/2016 CARDIOLOGY FOLLOWUP SUBJECTIVE: Discussed with the staff. Rhythm strip was reviewed. The patient remains in sinus rhy thm, sinus bradycardia, no pauses, but has had episodes of marked sinus bradycardia. Also, complain s of dizziness as well. MEDICATIONS: Reviewed. PHYSICAL EXAMINATION: VITAL SIGNS: Temperature 97, heart rate 55, blood pressure 142/78, respirations 18, saturating 97%. HEENT: Normocephalic, atraumatic. Pupils are equal. CARDIOVASCULAR: Regular rate and rhythm. PULMONARY: With no wheezes. GASTROINTESTINAL: Soft, nontender. EXTREMITIES: No significant edema. NEUROLOGIC: Awake and alert. PSYCHIATRIC: Appeared to be calm. LABORATORY: WBC of 5, hemoglobin 11.7, platelet of 1.65. Sodium 139, potassium 4.2, BUN of 20, cre atinine 0.95, glucose of 86. Troponin 0.032 0.014 0.14. Echocardiogram was personally reviewed, wh ich showed ejection fraction of 50% to 55%. ASSESSMENT AND PLAN: 1. Hypertension, currently under good control. 2. Sinus bradycardia. Will discontinue the beta millie because of it. 3. History of coronary artery disease. 4. History of coronary bypass graft. 5. History of PCI. We will continue with aspirin and Plavix. 6. History of . RECOMMENDATIONS: Antibiotic management as per internal medicine. I will discontinue the beta block er and increase the lisinopril the patient 20 b.i.d. With the above changes, no further cardiac wor kup would be needed. Okay to discharge from the cardiac standpoint. The patient is to follow up wi th her primary doctor next week. I will follow up p.r.n. Dictated By: JOSE LOMAS MD AV/NTS Conf#: [id number] DID#: [id number] CC: FRENCH MCMAHON MD;*End*
[2016-12-29] MEDS: PANTOPRAZOLE (EC) 40 MG TAB PO SCH (21:36)
[2016-12-29] MEDS: ATORVASTATIN 80 MG TAB PO SCH (21:36)
[2016-12-29] MEDS: LISINOPRIL 20 MG TAB PO SCH (21:36)
[2016-12-30 00:06] VITALS: PULSE 50
[2016-12-30 04:00] VITALS: BP 125/61; RESP 15
[2016-12-30 04:20] VITALS: PULSE 51
[2016-12-30 07:28] LABS: ADD SCAN DIFF NO
[2016-12-30 07:39] LABS: BASOPHILS % 0.9 % (0.0-2.0); EOSINOPHILS # 0.2 10^3/ul (0.0-0.5); EOSINOPHILS % 4.9 % (0.0-7.0); HEMATOCRIT 36.5 % (37.0-47.0); HEMOGLOBIN 12.1 g/dl (12.0-16.0); LYMPHOCYTES # 1.5 10^3/ul (0.8-2.9); MEAN CORPUSCULAR HEMOGLOBIN 30.6 pg (29.0-33.0); MEAN CORPUSCULAR HGB CONC 33.2 g/dl (32.0-37.0); MEAN CORPUSCULAR VOLUME 92.4 fl (82.0-101.0); MEAN PLATELET VOLUME 10.4 fl (7.4-10.4); MONOCYTE # 0.4 10^3/ul (0.3-0.9); MONOCYTES % 8.6 % (0.0-11.0); NEUTROPHIL # 2.4 10^3/ul (1.6-7.5); NEUTROPHILS % 53.4 % (39.0-77.0); PLATELET COUNT 168 10^3/UL (140-415); RED BLOOD COUNT 3.95 10^6/ul (4.20-5.40); RED CELL DISTRIBUTION WIDTH 11.9 % (11.5-14.5); WHITE BLOOD COUNT 4.5 10^3/ul (4.8-10.8)
[2016-12-30 07:53] VITALS: BP 151/72; RESP 17
[2016-12-30 07:56] LABS: PROTIME 13.2 Sec (12.2-14.2)
[2016-12-30 07:59] LABS: POTASSIUM 3.9 mmol/L (3.5-5.1)
[2016-12-30 08:00] VITALS: PULSE 53
[2016-12-30 08:01] LABS: CREATININE 0.95 mg/dl (0.44-1.00)
[2016-12-30 08:02] LABS: CALCIUM 9.5 mg/dl (8.4-10.2)
[2016-12-30] MEDS: ASPIRIN (EC) 81 MG TAB PO SCH (08:52)
[2016-12-30] MEDS: FOLIC ACID 1 MG TAB PO SCH (08:52)
[2016-12-30] MEDS: CLOPIDOGREL 75 MG TAB PO SCH (08:52)
[2016-12-30] MEDS: LISINOPRIL 20 MG TAB PO SCH (08:53)
[2016-12-30] MEDS: LEVOFLOXACIN 250MG/D5W (PMX) 50 ML IVPB SCH (08:55)
[2016-12-30] MEDS ORDERED: LISI20TA11 PO (09:56)
[2016-12-30] MEDS ORDERED: LEVO500T72 PO (10:13)
[2016-12-30 10:26] VITALS: PULSE 153
[2016-12-30] MEDS: RANOLAZINE (SR) 500 MG TAB PO SCH (11:00)
[2016-12-31] MEDS ORDERED: LEVOFLOXACIN 500 MG TAB PO SCH (06:00)
--- NOTE | 2017-01-01 09:08 | DS ---
DATE OF ADMISSION: 12/28/2016 DATE OF DISCHARGE: 12/30/2016 DISCHARGE DIAGNOSIS (ES): 1. Atypical chest pain. 2. Sinus bradycardia secondary to beta millie. 3. Coronary artery disease status post coronary artery bypass graft in April 2016. 4. Status post percutaneous coronary intervention in June 2016. 5. History of hypertension. 6. Hyperlipidemia. 7. Asthma, compensated. 8. History of eczema. 9. Urinary tract infection. HOSPITAL COURSE: The patient presented to Emergency Room with complaints of atypical chest pain. S he was noted to have sinus bradycardia with heart rate in the mid-30s. Acute CO was ruled out. The patient was seen in consultation by Dr. Nguyen. Metoprolol was discontinued and lisinopril was inc reased to 20 mg b.i.d. Echocardiogram showed normal LV function. Additionally, the patient was di agnosed with urinary tract infection and started on Levaquin 500 mg daily for an additional 7 days a s outpatient. The patient was in stable condition for discharge. She will follow up with her PCP antonio white Dr. ____ as outpatient. Dictated By: CULLEN WOODSON/MENDEL Conf#: [id number] DID#: [id number]
== END 2016-12-30 12:20 | disposition home or self-care (01) ==
LOC: E/R 21:53 → MS4 12-28 00:33
PROVIDERS: ADMIT Internal Medicine; ATTEND Internal Medicine
DX: R07.89 Other chest pain (principal); R00.1 Bradycardia, unspecified; I25.10 Atherosclerotic heart disease of native coronary artery without angina pectoris; Z95.1 Presence of aortocoronary bypass graft; Z95.5 Presence of coronary angioplasty implant and graft; I10 Essential (primary) hypertension; E78.5 Hyperlipidemia, unspecified; E78.00 Pure hypercholesterolemia, unspecified; J45.909 Unspecified asthma, uncomplicated; N39.0 Urinary tract infection, site not specified; Z79.82 Long term (current) use of aspirin; Z88.0 Allergy status to penicillin; Z88.8 Allergy status to other drugs, medicaments and biological substances; Z79.02 Long term (current) use of antithrombotics/antiplatelets
CPT/HCPCS: 36415; 71010; 80048; 80053; 81001; 82550; 82553; 83690; 84484; 85025; 85610; 85730; 87081; 87086; 93005; 93306; 96365; 96374; 96375; 96376; J1956; J2270; J2405; J7030; Z7500; Z7502; Z7610; 81003; G0378

== ENCOUNTER 2017-06-01 22:09 | Emergency (ER) | payer OTHER ==
[~2017-06-01] VITALS: Ht 162.6 cm; Wt 52.0 kg
[~2017-06-01 22:09] MED LIST changes: +ACET500T76 PO; +AMLO-145 PO; -ATOR40TA68 PO; +ATOR80TA75 PO; -DOCU100C PO; +ERGO500037 PO; -FER325 PO; +FOLI-49 PO; +LABE200T25 PO; -LISI-313 PO; +LISI20TA11 PO; -LORA0.5T PO; -METO25TA7 PO; +VENL-42 PO
[2017-06-01 22:14] VITALS: Ht 162.6 cm; Wt 52.0 kg
--- NOTE | 2017-06-02 00:09 | ERA ---
ER Documentation Chief Complaint Date/Time DATE: 06/02/17 TIME: 00:08 Chief Complaint back pain HPI The patient is a 62-year-old female, presenting to the ER because of mid back pain around 7 PM, associated with shortness of breath and substernal chest pain. She had similar symptoms previously, the pain is worse with movement, , denies chest pain with exertion/vomiting/palpitation/diaphoresis. She denies abdominal pain, vomiting, dysuria, diarrhea. She does not smoke nor drink She was admitted recently on April 17, 2017 had a negative stress test and unremarkable Lexiscan test, evaluated by his licensed practical nurse and discharged Past medical history: CAD, hypertension, dyslipidemia, asthma, depression X Past surgical history: CABG in April 2016, PCI ROS All systems reviewed and are negative except as per history of present illness. Medications Home Meds Active Scripts Amlodipine Besylate* (Amlodipine Besylate*) 5 Mg Tablet, 5 MG PO BID for 30 Days , TAB 3 Refills Prov:AMINATA ANDERSON 04/17/17 Lisinopril* (Lisinopril*) 20 Mg Tablet, 20 MG PO BID for 30 Days, #60 TAB 3 Refills Prov:CULLEN GONCALVES MD 12/30/16 Pantoprazole* (Protonix*) 40 Mg Tablet., 40 MG PO QHS, #30 TAB 3 Refills Prov:AMINATA ANDERSON 07/25/16 Aspirin* (Aspirin* EC) 81 Mg Tablet.dr, 81 MG PO DAILY for 30 Days, 3 Refills Prov:AMINATA ANDERSON 07/25/16 Clopidogrel Bisulfate (Clopidogrel) 75 Mg Tablet, 75 MG PO DAILY for 30 Days, TAB 3 Refills Prov:TOMASZ VILLAR MD 06/17/16 Reported Medications Ergocalciferol (Vitamin D2) (VITAMIN D2) 50,000 Unit Capsule, 04411 UNIT PO Q7D , CAP 04/15/17 Folic Acid* (Folic Acid*) 1 Mg Tablet, 1 MG PO DAILY, TAB 04/15/17 Acetaminophen (PAIN & FEVER) 500 Mg Tablet, 500 MG PO Q6H Y for PAIN, TAB 04/15/17 Labetalol Hcl* (Labetalol Hcl*) 200 Mg Tablet, 200 MG PO BID, TAB 04/15/17 Venlafaxine Hcl* (Venlafaxine Hcl ER*) 37.5 Mg Cap.er.24h, 37.5 MG PO DAILY, CAP 04/15/17 Atorvastatin* (Atorvastatin*) 80 Mg Tablet, 80 MG PO QHS, #30 TAB 12/27/16 Ranolazine* (Ranexa*) 500 Mg Tab.sr.12h, 500 MG PO BID, TAB 07/23/16 Allergies Allergies: Coded Allergies: Penicillins (Verified Allergy, Unknown, 04/15/17) metronidazole (Verified Allergy, Unknown, RASH, 04/15/17) PMhx/Soc History of Surgery: Yes (CABG 2016 STENT 2 MOS AFTER) Anesthesia Reaction: No Hx Neurological Disorder: No Hx Respiratory Disorders: Yes (ASTHMA) Hx Cardiac Disorders: Yes (CAD, CABG, HTN) Hx Psychiatric Problems: Yes (DEPRESSION) Hx Miscellaneous Medical Probl: Yes (HIGH CHOLESTEROL) Hx Alcohol Use: No Hx Substance Use: No Hx Tobacco Use: No Physical Exam Vitals Vital Signs Date Time Temp Pulse Resp B/P Pulse Ox O2 Delivery O2 Flow Rate FiO2 06/02/17 04:03 58 14 127/58 100 Room Air 06/02/17 03:04 98.3 71 20 128/73 99 06/01/17 22:14 98.3 61 20 131/71 99 Physical Exam Const: No acute distress. Head: Atraumatic. Eyes: Normal Conjunctiva. ENT: Normal External Ears, Nose and Mouth. Neck: Full range of motion. No meningismus. Resp: Clear to auscultation bilaterally. Cardio: Regular rate and rhythm. Abd: Soft, non distended, normal bowel sounds, non tender. Skin: No petechiae or rashes. Back: No midline or flank tenderness.Minimal and vague thoracic tenderness, no crepitus Ext: No cyanosis, or edema. Neur: Awake and alert. No focal deficit Psych: Normal Mood and Affect. Result Diagram: 06/02/17 0010 06/02/17 001 Results 24 hrs Laboratory Tests Test 06/02/17 00:10 06/02/17 03:00 White Blood Count 6.310^3/ul Red Blood Count 4.0010^6/ul Hemoglobin 12.8g/dl Hematocrit 38.3% Mean Corpuscular Volume 95.8fl Mean Corpuscular Hemoglobin 32.0pg Mean Corpuscular Hemoglobin Concent 33.4g/dl Red Cell Distribution Width 11.9% Platelet Count 22655^3/UL Mean Platelet Volume 9.9fl Neutrophils % 52.4% Lymphocytes % 36.5% Monocytes % 6.7% Eosinophils % 3.3% Basophils % 0.8% Nucleated Red Blood Cells % 0.0/100WBC Neutrophils # 3.310^3/ul Lymphocytes # 2.310^3/ul Monocytes # 0.410^3/ul Eosinophils # 0.210^3/ul Basophils # 0.110^3/ul Nucleated Red Blood Cells # 0.010^3/ul Prothrombin Time 11.8Sec Prothrombin Time Ratio 0.9 INR International Normalized Ratio 0.87 Activated Partial Thromboplast Time 24.7Sec Sodium Level 141mmol/L Potassium Level 4.7mmol/L Chloride Level 105mmol/L Carbon Dioxide Level 28mmol/L Anion Gap 13 Blood Urea Nitrogen 27mg/dl Creatinine 1.08mg/dl Glucose Level 103mg/dl Calcium Level 10.4mg/dl Total Bilirubin 0.4mg/dl Direct Bilirubin 0.00mg/dl Indirect Bilirubin 0.4mg/dl Aspartate Amino Transf (AST/SGOT) 25IU/L Alanine Aminotransferase (ALT/SGPT) 35IU/L Alkaline Phosphatase 57IU/L Troponin I 0.025ng/ml 0.022ng/ml Total Protein 8.9g/dl Albumin 4.7g/dl Globulin 4.20g/dl Albumin/Globulin Ratio 1.11 Lipase 110U/L Current Medications Medications (Trade) Dose Ordered Sig/Rosario Route PRN Reason Start Time Stop Time Status Last Admin Dose Admin Morphine Sulfate (morphine) 2 mg ONCE ONCE IV 06/02/17 00:30 06/02/17 00:31 DC 06/02/17 00:29 Ondansetron HCl (Zofran Inj) 4 mg ONCE STAT IV 06/02/17 00:18 06/02/17 00:21 DC 06/02/17 00:29 IV Flush 10 ml 10 ml STK-MED ONCE .ROUTE 06/02/17 01:43 06/02/17 01:44 DC 06/02/17 01:59 Sodium Chloride (NS) 100 ml @ STK-MED ONCE .ROUTE 06/02/17 01:43 06/02/17 01:44 DC 06/02/17 01:59 Iodixanol (Visipaque Locm) 100 ml STK-MED ONCE .ROUTE 06/02/17 01:43 06/02/17 01:44 DC 06/02/17 01:59 Iodixanol (Visipaque Locm) 100 ml STK-MED ONCE .ROUTE 06/02/17 01:43 06/02/17 01:44 DC Iodixanol (Visipaque Locm) 50 ml STK-MED ONCE .ROUTE 06/02/17 01:44 06/02/17 01:45 DC 06/02/17 02:00 Procedures/[place] [id number] Radiology Main Line: [phone] DIAGNOSTIC IMAGING REPORT Patient: BREANNA POZO : 1955 Age: 62 Sex: F MR #: [id number] DOS: 06/02/17 0018 Ordering MD: ZOLTAN TEJADA MD Location: E/R Room/Bed: PROCEDURE: CT angiogram chest abdomen and pelvis. CLINICAL INDICATION: Chest and back pain TECHNIQUE: CT angiogram of the chest/abdomen/pelvis was performed utilizing axial images with reconstructions in sagittal and coronal planes after the uneventful intravenous administration of 90 cc Isovue 370 contrast. The administered radiation dose is CTDI 4.1 mGy, DLP 293 mGy-cm. One or more of the following dose reduction techniques were used: automated exposure control, adjustment of the mA and/or kV according to patient size and/or use of iterative reconstruction technique. COMPARISON: 06/12/2016 FINDINGS: Aortogram: There is no evidence of aortic dissection or aneurysm. Major branches of the aorta are patent. Atherosclerotic calcifications are noted throughout the aorta and its branches. Pulmonary angiogram: The pulmonary arteries are adequately opacified to the level of the segmental pulmonary artery branches. There is minimal respiratory motion artifact. There is no evidence of pulmonary embolus. Chest: The lungs are clear. The tracheobronchial tree is patent. There is no evidence of pleural effusion. There is mild cardiomegaly. Coronary artery calcifications are noted. Prior median sternotomy is noted. No pericardial effusion is seen. There is no evidence of mediastinal or hilar adenopathy. Abdomen: The liver, spleen, pancreas, gallbladder, kidneys and adrenal glands are unremarkable. There is no evidence of bowel obstruction. The appendix is normal. There is no intra-abdominal adenopathy of free fluid. Pelvis: There is no evidence of pelvic adenopathy. The uterus and ovaries are without enlargement. The urinary bladder is unremarkable. There is no pelvic free fluid. Osseous structures: Unremarkable. IMPRESSION: No evidence of aortic dissection or aneurysm. No evidence of pulmonary embolus. RPTAT: HIKT .Brady Oro MD, MD Date Time Electronically viewed and signed by .Brady Oro MD, on 06/02/2017 02:46 .T/ CC: ZOLTAN TEJADA MD [place] [id number] Radiology Main Line: [phone] DIAGNOSTIC IMAGING REPORT Patient: BREANNA POZO : 1955 Age: 62 Sex: F MR #: [id number] DOS: 06/02/17 0018 Ordering MD: ZOLTAN TEJADA MD Location: E/R Room/Bed: PROCEDURE: XR Chest. CLINICAL INDICATION: Chest pain TECHNIQUE: AP Portable chest. COMPARISON: 08/10/2016 FINDINGS: There is mild cardiomegaly. Prior median sternotomy is noted. Atherosclerotic calcifications are noted in the aorta. The lungs are clear. The osseous structures are unremarkable. IMPRESSION: No acute findings. RPTAT: HIKT .Brady Oro MD, MD Date Time Electronically viewed and signed by .Brady Oro MD, MD on 06/02/2017 02:23 .T/ CC: ZOLTAN TEJADA MD EK:27 hr Read by emergency physician Rate/Rhythm: Sinus bradycardia 56 beats/min QRS, ST, T-waves: No ST elevation, no T inversion, nonspecific T abn Impression: Abnormal EKG EK:33 hr Read by emergency physician Rate/Rhythm: Sinus bradycardia 55 beats/min QRS, ST, T-waves: No ST elevation, no T inversion, Prolonged QT Impression: Abnormal EKG MEDICAL MAKING DECISION: The patient is a 72-year-old female, presenting with back pain, chest pain of unclear etiology. She was treated with morphine 2 mg IV for pain, Zofran 4 mg IV for nausea with good response. I do not suspect ACS, thoracic aortic dissection, PE The differential diagnoses considered include but are not limited to caudal equina syndrome, spinal abscess, DJD, diskitis, lumbar radiculopathy. The patient presents with chest pain and I considered pulmonary embolism, aortic dissection, pneumothorax among other diagnoses. Evaluation for acute coronary syndrome was performed. The HEART score (www.mdcalc.com) was utilized for risk stratification and found to be <= 3. Repeat EKG and troponin @ 3 hours were unchanged. Based on this evaluation the patients risk of major adverse cardiac events is <1%. Shared decision making occurred with patient and the decision has been made to discharge the patient for outpatient evaluation and functional study within 72 hours. Departure Diagnosis: Primary Impression: Back pain Additional Impression: Chest pain Condition: Good Comments I discussed the findings with the patient. I advised the patient to follow-up with the primary physician in about 1-2 days, sooner if needed and return if any concern. ZOLTAN TEJADA MD Jun 02, 2017 00:09
[2017-06-02] MEDS ORDERED: ONDANSETRON 4 MG INJ IV STA (00:18)
[2017-06-02] MEDS ORDERED: morphine 2 MG INJ IV ONE (00:30)
[2017-06-02 00:34] LABS: BASOPHIL # 0.1 10^3/ul (0.0-0.1); BASOPHILS % 0.8 % (0.0-2.0); EOSINOPHILS # 0.2 10^3/ul (0.0-0.5); EOSINOPHILS % 3.3 % (0.0-7.0); HEMATOCRIT 38.3 % (37.0-47.0); HEMOGLOBIN 12.8 g/dl (12.0-16.0); LYMPHOCYTES # 2.3 10^3/ul (0.8-2.9); LYMPHOCYTES % 36.5 % (15.0-51.0); MEAN CORPUSCULAR HGB CONC 33.4 g/dl (32.0-37.0); MEAN CORPUSCULAR VOLUME 95.8 fl (82.0-101.0); MEAN PLATELET VOLUME 9.9 fl (7.4-10.4); MONOCYTE # 0.4 10^3/ul (0.3-0.9); MONOCYTES % 6.7 % (0.0-11.0); NEUTROPHIL # 3.3 10^3/ul (1.6-7.5); NEUTROPHILS % 52.4 % (39.0-77.0); PLATELET COUNT 194 10^3/UL (140-415); RED CELL DISTRIBUTION WIDTH 11.9 % (11.5-14.5); WHITE BLOOD COUNT 6.3 10^3/ul (4.8-10.8)
[2017-06-02 00:52] LABS: INR 0.87; PROTIME 11.8 Sec (12.2-14.2); PT RATIO 0.9
[2017-06-02 00:53] LABS: PARTIAL THROMBOPLASTIN TIME 24.7 Sec (25.0-35.0)
[2017-06-02 00:58] LABS: ALBUMIN 4.7 g/dl (3.3-4.9); ALBUMIN/GLOBULIN RATIO 1.11; BILIRUBIN,INDIRECT 0.4 mg/dl (0-1.1); BILIRUBIN,TOTAL 0.4 mg/dl (0.2-1.3); CALCIUM 10.4 mg/dl (8.4-10.2); CREATININE 1.08 mg/dl (0.44-1.00); POTASSIUM 4.7 mmol/L (3.5-5.1); TOTAL PROTEIN 8.9 g/dl (6.1-8.1)
[2017-06-02 01:08] LABS: TROPONIN-I 0.025 ng/ml (0.00-0.12)
[2017-06-02] MEDS ORDERED: IODIXANOL LOCM 100 ML BTL ONE ×2 (01:43)
[2017-06-02] MEDS ORDERED: SOD CHLORIDE 0.9% 100 ML ONE (01:43)
[2017-06-02] MEDS ORDERED: IODIXANOL LOCM 50 ML BTL ONE (01:44)
--- NOTE | 2017-06-02 02:24 | RADRPT ---
PROCEDURE: XR Chest. CLINICAL INDICATION: Chest pain TECHNIQUE: AP Portable chest. COMPARISON: 08/10/2016 FINDINGS: There is mild cardiomegaly. Prior median sternotomy is noted. Atherosclerotic calcifications are not ed in the aorta. The lungs are clear. The osseous structures are unremarkable. IMPRESSION: No acute findings. RPTAT: HIKT .Brady Oro MD, MD Date Time Electronically viewed and signed by .Brady Oro MD, MD on 06/02/2017 02:23 .T/
--- NOTE | 2017-06-02 02:47 | RADRPT ---
PROCEDURE: CT angiogram chest abdomen and pelvis. CLINICAL INDICATION: Chest and back pain TECHNIQUE: CT angiogram of the chest/abdomen/pelvis was performed utilizing axial images with gaudencio nstructions in sagittal and coronal planes after the uneventful intravenous administration of 90 cc Isovue 370 contrast. The administered radiation dose is CTDI 4.1 mGy, DLP 293 mGy-cm. One or more of the following dose reduction techniques were used: automated exposure control, adjustment of the mA and/or kV according to patient size and/or use of iterative reconstruction technique. COMPARISON: 06/12/2016 FINDINGS: Aortogram: There is no evidence of aortic dissection or aneurysm. Major branches of the aorta are patent. Atherosclerotic calcifications are noted throughout the aorta and its branches. Pulmonary angiogram: The pulmonary arteries are adequately opacified to the level of the segmental pulmonary artery branches. There is minimal respiratory motion artifact. There is no evidence of p ulmonary embolus. Chest: The lungs are clear. The tracheobronchial tree is patent. There is no evidence of pleural effusion . There is mild cardiomegaly. Coronary artery calcifications are noted. Prior median sternotomy is not ed. No pericardial effusion is seen. There is no evidence of mediastinal or hilar adenopathy. Abdomen: The liver, spleen, pancreas, gallbladder, kidneys and adrenal glands are unremarkable. There is no evidence of bowel obstruction. The appendix is normal. There is no intra-abdominal adenopathy of free fluid. Pelvis: There is no evidence of pelvic adenopathy. The uterus and ovaries are without enlargement. The uri nary bladder is unremarkable. There is no pelvic free fluid. Osseous structures: Unremarkable. IMPRESSION: No evidence of aortic dissection or aneurysm. No evidence of pulmonary embolus. RPTAT: HIKT .Brady Oro MD, Date Time Electronically viewed and signed by .Brady Oro MD, on 06/02/2017 02:46 .T/
[2017-06-02 03:04] VITALS: TEMP 98.3
[2017-06-02] MEDS ORDERED: HYDR-906 PO (04:13)
[2017-06-02 04:37] VITALS: BP 102/58; PULSE 64; RESP 15
== END 2017-06-02 04:37 | disposition home or self-care (01) ==
LOC: E/R 22:09
DX: M54.9 Dorsalgia, unspecified (principal); R07.2 Precordial pain
CPT/HCPCS: 36415; 71010; 71275; 75635; 80053; 83690; 84484; 85025; 85610; 85730; 96374; 96375; J2270; J2405; Q9967; Z7502; Z7610; 93005